=== PATIENT | female | born 1955 | race Caucasian/White ===

== ENCOUNTER 2023-12-07 19:06 | Emergency (ER) | payer MEDICARE, OTHER, SELFPAY ==
[2023-12-07 19:14] VITALS: BP 155/84
--- NOTE | 2023-12-07 19:31 | ED.GENMED ---
History of Present Illness
<Eileen Sims PA-C - Last Filed: 12/07/23 20:52>
General
Chief Complaint: Skin Surface Trauma
Source: patient
Exam Limitations: none
Time Seen by Provider: 12/07/23 19:22
Nursing documentation reviewed up to this point in time: agreed with
History of Present Illness
History of Present Illness:
Patient is a 68-year-old female presenting for evaluation of laceration to left index finger. Patient states that she was cutting an onion about an hour ago when she accidentally sliced her finger. She tried applying pressure and elevating it
without cessation of bleeding so she came to the emergency department for further evaluation. Patient denies any numbness/tingling in left finger. Patient denies any weakness in left finger.
Patient does believe that her tetanus shot was updated within the past 5 years.
Patient is not on a blood thinner.
Past History
<Eileen Sims PA-C - Last Filed: 12/07/23 20:52>
Past History
ED Past Medical History: Other (Reynauds) and Other (seasonal allergies)
Social History
Tobacco: Non-smoker
Living: with family
Review of Systems
<Eileen Sims PA-C - Last Filed: 12/07/23 20:52>
Review of Systems
Allergies reviewed?: Yes
All Other Systems: ROS reviewed and negative except as documented in HPI and ROS
Phy Exam
<Eileen Sims PA-C - Last Filed: 12/07/23 20:52>
Physical Exam
Physical Exam:
Vitals: Patient's vital signs are stable
General: Patient is well appearing, no acute distress
Skin: Avulsion injury of tip of left index finger at lateral aspect
Head: Normocephalic, atraumatic
Eyes: Sclera nonicteric. EOMs intact. No nystagmus.
Throat: Protecting airway
Neck: Normal ROM, no cervical spine tenderness, no meningismus
Cardiac: Regular rate and rhythm, no murmurs.
Pulm: Normal respiratory effort, no wheezes, rales, rhonchi heard on exam.
Abdomen: No abdominal tenderness.
Extremities: Avulsion injury of tuft of left index finger. Actively bleeding. no evidence of tendon involvement. Full strength in left MCP, PIP, and DIP joint against resistance. Good capillary refill. No involvement of nailbed.
Neuro: AAOx3. CN II-XII intact. No focal neurologic deficits.
Psychiatric: Normal affect.
Course
<Eileen Sims PA-C - Last Filed: 12/07/23 20:52>
Vital Signs
Initial and Last Documented VS:
Initial Vital Signs
Temp Pulse Resp BP Pulse Ox
98.1 F 82 20 155/84 100
12/07/23 19:14 12/07/23 19:14 12/07/23 19:14 12/07/23 19:14 12/07/23 19:14
Last Documented Vital Signs
Temp Pulse Resp BP Pulse Ox
98.1 F 82 20 155/84 100
12/07/23 19:14 12/07/23 19:14 12/07/23 19:14 12/07/23 19:14 12/07/23 19:14
<Zachary Guillen MD - Last Filed: 12/07/23 19:53>
Vital Signs
Initial and Last Documented VS:
Initial Vital Signs
Temp Pulse Resp BP Pulse Ox
98.1 F 82 20 155/84 100
12/07/23 19:14 12/07/23 19:14 12/07/23 19:14 12/07/23 19:14 12/07/23 19:14
Last Documented Vital Signs
Temp Pulse Resp BP Pulse Ox
98.1 F 82 20 155/84 100
12/07/23 19:14 12/07/23 19:14 12/07/23 19:14 12/07/23 19:14 12/07/23 19:14
<Eileen Sims PA-C - Last Filed: 12/07/23 20:52>
MDM/Problems Addressed
Differential Diagnosis Includes:
Not limited to: Avulsion injury, laceration
MDM/Problems Addressed:
68-year-old female presenting for evaluation of avulsion injury of left tip of finger. This occurred with a kitchen knife while she was slicing an onion. Patient not on any blood thinners. No other injuries.
Vital signs stable. Physical exam as above. There is an avulsion of the left tip of index finger at lateral aspect with no nailbed involvement. Great capillary refill of left first digit no evidence of tendon involvement. Sensation fully intact.
Will irrigate, apply Gelfoam, compressive dressing and reassess.
Into reassess patient approximately 15 minutes after Gelfoam/dressing was applied. Bleeding is controlled. At this point stable for discharge with wound care instructions, return precautions. Discussed signs of infection at length with patient.
Wound care instructions also discussed with patient at length. Advised to keep current dressing on for 24 to 48 hours.
Patient does believe tetanus is up-to-date within the past 5 years. She will contact her primary care provider on Saturday to ensure this is correct and have it updated if not
Chronic conditions affecting care:
N/A
Acute Exacerbation and/or Progression of Chronic Illness:
N/A
<Eileen Sims PA-C - Last Filed: 12/07/23 20:52>
*Pulse Oximetry
Patient hypoxic: no
*EKG
Interpreted by ED Provider?: NA
*Chronic Disease Epidemiologist Interpretation
Rate: Chronic Disease Epidemiologist- N/A
*Critical Care Note
Total Time (30-74mins, 75-104mins- exclusive of procedures): Not Applicable
ED Attending Note
<Eileen Sims PA-C - Last Filed: 12/07/23 20:52>
-
Portions of this chart may have been created with voice recognition software.� Occasional wrong word or��sound alike� substitutions may have occurred due to the inherent limitations of voice recognition software.
<Zachary Guillen MD - Last Filed: 12/07/23 19:53>
ED Attending Note
Patient seen and examined by attending physician: Yes
I performed the substantive portion of visit, reviewed & personally made and approve the management plan that is documented in note by myself or JAGDEEP.: Yes
ED Attending Note:
Patient cut her left index finger with a sharp knife. Avulsed the tip. Last tetanus less than 10.
Approximately 1 cm x 70 mm avulsion to the tuft of the finger. Actively bleeding.
Plan irrigate clean Gelfoam if this does not work we will try glue.
Discharge Plan
Departure
Patient Disposition: Home (Routine Discharge)
Date of Disposition: 12/07/23
Time of Disposition: 20:34
Patient with high blood pressure during this ER visit?: Yes
Condition: Good
Covid-19: Not Applicable
Discharge Problem:
Fingertip avulsion
Instructions: Wound Care ED
Prescriptions:
No Action
simvastatin 20 MG tablet
20 mg PO HS
fluticasone propionate 1 SPRAY spray,suspension
2 spray intranasal DAILY PRN (Reason: allergies)
calcium carbonate-vitamin D3 1 EACH tablet
1 ea PO Q12H
mupirocin 1 APPLIC ointment
1 applic intranasal BID Qty: 1 0RF
Patient Comments:
mupirocin ointment started on 12/12/18 BID, last dose 12/15/18 @ 4:45
sennosides [senna] 1 TABLET tablet
2 tab PO BID 0RF
acetaminophen 325 MG tablet
650 mg PO QID 0RF
magnesium hydroxide 30 ML suspension
30 ml PO DAILYPRN PRN (Reason: constipation) 0RF
aspirin 325 MG tablet,delayed release (DR/EC)
325 mg PO DAILY 0RF
docusate sodium 100 MG capsule
100 mg PO BID 0RF
oxycodone 5 MG tablet
5 mg PO Q4HPRN PRN (Reason: moderate-severe pain) Qty: 35 0RF
Rx Instructions:
dx garrett
ongoing
ibuprofen 200 MG tablet
400 mg PO BID Qty: 1 0RF
Rx Instructions:
*tAKE WITH FOOD
*DO NOT TAKE WITHIN 2HOURS OF ASA
famotidine 20 MG tablet
20 mg PO HS Qty: 30 0RF
Referrals:
Maria Isabel Torres MD [Family Provider] - Follow up in 1 week
Activity Restrictions/Additional Instructions:
RETURN TO THE EMERGENCY DEPARTMENT WITH ANY RECURRENT BLEEDING THAT WON'T STOP, NUMBNESS/TINGLING IN LEFT FINGER, INTRACTABLE PAIN, OR ANY SIGNS OF INFECTION
-As discussed, you should monitor for signs of infection including severe pain, worsening swelling or redness, red streaking away from wound, pus draining from wound, fever or chills. Please visit your primary care provider if you develop any signs
of infection
-You should keep the current dressing on for 24 to 48 hours. Then you can remove, wash gently with soap and water. You should keep wound covered with antibiotic ointment until it heals. The Gelfoam will dissolve on its own. Keep healing wound
clean and dry. You can take Tylenol as needed for any discomfort.
-As discussed that she should contact her primary care provider on Saturday to ensure that your tetanus shot is up-to-date.
-Monitor your symptoms closely and please return with any acute worsening/any other concerns
Interventions
Interventions:
*Risk Screen - Suicide Last Done: 12/07/23 19:14
*General Assessment Last Done: 12/07/23 19:14
*Neglect/Abuse Screening Last Done: 12/07/23 19:14
ED- Fall Risk Assessment Last Done: 12/07/23 19:14
*ED COVID-19 Vaccine History Last Done: 12/07/23 19:14
*Nursing Disposition Last Done: 12/07/23 20:47
ED-Skin Assessment Last Done: 12/07/23 20:17
Discharge Date and Time
Print Language: BENGALI
== END 2023-12-07 20:47 | disposition home or self-care (01) ==
LOC: EMR 19:06
PROVIDERS: EMERGENCY PHYSICIAN Emergency Medicine; FAMILY PHYSICIAN Family Medicine
DX: S61.211A Laceration without foreign body of left index finger without damage to nail, initial encounter (principal); W26.0XXA Contact with knife, initial encounter; Y93.G1 Activity, food preparation and clean up; R03.0 Elevated blood-pressure reading, without diagnosis of hypertension; E78.5 Hyperlipidemia, unspecified; M19.90 Unspecified osteoarthritis, unspecified site; Z96.641 Presence of right artificial hip joint; Z79.82 Long term (current) use of aspirin; Z91.048 Other nonmedicinal substance allergy status
CPT/HCPCS: 99282

== ENCOUNTER → 2024-02-11 15:33 | Outpatient (REF) | payer MEDICARE, OTHER, SELFPAY | LOC: RAD 15:33 | PROVIDERS: ATTENDING PHYSICIAN Family Medicine | DX: R05.3 Chronic cough (principal) | CPT/HCPCS: 71046 ==

== ENCOUNTER → 2024-04-24 15:07 | Outpatient (REF) | payer MEDICARE, OTHER, SELFPAY | LOC: WDC 15:07 | PROVIDERS: ATTENDING PHYSICIAN Family Medicine | DX: M85.89 Other specified disorders of bone density and structure, multiple sites (principal); Z12.31 Encounter for screening mammogram for malignant neoplasm of breast | CPT/HCPCS: 77063; 77067; 77080 ==

== ENCOUNTER → 2024-09-23 14:08 | Outpatient (REF) | payer MEDICARE, OTHER, SELFPAY | LOC: RAD 14:08 | PROVIDERS: ATTENDING PHYSICIAN Family Medicine; FAMILY PHYSICIAN Family Medicine | DX: T14.90XA Injury, unspecified, initial encounter (principal); M79.672 Pain in left foot | CPT/HCPCS: 73630 ==

== ENCOUNTER → 2025-01-14 08:17 | Outpatient (REF) | payer MEDICARE, OTHER, SELFPAY | LOC: RCS 08:17 | PROVIDERS: ATTENDING PHYSICIAN Family Medicine | DX: R00.1 Bradycardia, unspecified (principal) | CPT/HCPCS: 93225; 93226 ==

== ENCOUNTER 2025-01-15 09:50 | Emergency (ER) | payer MEDICARE, OTHER, SELFPAY ==
[2025-01-15 09:56] VITALS: BP 169/87
[2025-01-15 10:42] VITALS: BP 167/83
[2025-01-15 10:43] VITALS: BMI 22.8
[2025-01-15 11:00] VITALS: BP 155/79
--- NOTE | 2025-01-15 11:06 | ED.GENMED ---
History of Present Illness
General
Chief Complaint: Breathing Problem
Source: patient
Exam Limitations: none
Time Seen by Provider: 01/15/25 10:21
History of Present Illness
History of Present Illness:
69-year-old female presents complaining of palpitations and shortness of breath with associated lightheadedness. There is no significant chest pain. No swelling in the legs or calf pain. No fever. She states she was checking her pulse ox at home
which was reading low and her heart rate was jumping up to 130 beats a minute at times. She has in the interim seen by her family doctor. Family doctor currently has her on her Holter monitor. She has a history of hyperlipidemia but no other
medical problems. No other complaints at this time
Past History
Past History
ED Past Medical History: Other (Reynauds) and Other (seasonal allergies)
Social History
Tobacco: Non-smoker
Living: with family
Phy Exam
Physical Exam
Physical Exam:
General: Well-appearing female no acute respiratory distress
HEENT: Normocephalic atraumatic
Heart: Regular rate and rhythm
Lungs: Clear no wheeze
Extremities: No cyanosis or edema
Skin: Warm no rash
Scores
Heart Failure Risk
Heart Failure Risk Score: Not Applicable
Course
Orders/Labs/Results
Orders:
Orders
01/15/25 09:50
EKG [Electrocardiogram (*1)] Urgent
Reason for Study: Shortness of Breath
EKG- Treatment ONCE
01/15/25 10:50
CT Chest PE Study Urgent
Comment:
Reason For Exam: sob
01/15/25 10:54
Basic Metabolic Panel Urgent
Complete Blood Count/With Diff Urgent
NT-proBNP Urgent
TSH Reflex To Free T4 Urgent
Abnormal Lab Results
01/15/25
10:54
MCH 31.5 H pg
(27.0-31.0)
01/15/25 10:54
01/15/25 10:54
Vital Signs
Initial and Last Documented VS:
Initial Vital Signs
Temp Pulse Resp BP Pulse Ox
98.1 F 56 16 169/87 100
01/15/25 09:56 01/15/25 09:56 01/15/25 09:56 01/15/25 09:56 01/15/25 09:56
Last Documented Vital Signs
Temp Pulse Resp BP Pulse Ox
98.1 F 54 12 141/77 99
01/15/25 09:56 01/15/25 13:08 01/15/25 13:08 01/15/25 12:00 01/15/25 12:30
MDM/Problems Addressed
Differential Diagnosis Includes:
Palpitations lightheadedness shortness of breath. Consider arrhythmia versus anemia versus electrolyte abnormality versus PE
Patient did have a semirecent flight to [place]. Consider PE PE study pending. Will place on monitor.
*Pulse Oximetry
SaO2: 96
Oxygen Mode of Delivery: Room air
Patient hypoxic: no
*Critical Care Note
Total Time (30-74mins, 75-104mins- exclusive of procedures): Not Applicable
Update Note
Update Note:
Worker. With normal troponin, BNP and PE study. No arrhythmias on the monitor. She is not hypoxic here. Thyroid study normal. Patient describes chest comfort and shortness of breath but workup. Negative. Will discharge patient with follow-up
with cardio
ED Attending Note
-
Portions of this chart may have been created with voice recognition software.� Occasional wrong word or��sound alike� substitutions may have occurred due to the inherent limitations of voice recognition software.
Discharge Plan
Departure
Patient Disposition: Home (Routine Discharge)
Date of Disposition: 01/15/25
Time of Disposition: 14:27
Patient with high blood pressure during this ER visit?: No
Discharge Problem:
Shortness of breath
Instructions: Chest Pain CBC Follow Up
Prescriptions:
No Action
simvastatin 20 MG tablet
20 mg PO HS
fluticasone propionate 1 SPRAY spray,suspension
2 spray intranasal DAILY PRN (Reason: allergies)
calcium carbonate-vitamin D3 1 EACH tablet
1 ea PO Q12H
mupirocin 1 APPLIC ointment
1 applic intranasal BID Qty: 1 0RF
Patient Comments:
mupirocin ointment started on 12/12/18 BID, last dose 12/15/18 @ 4:45
sennosides [senna] 1 TABLET tablet
2 tab PO BID 0RF
acetaminophen 325 MG tablet
650 mg PO QID 0RF
magnesium hydroxide 30 ML suspension
30 ml PO DAILYPRN PRN (Reason: constipation) 0RF
aspirin 325 MG tablet,delayed release (DR/EC)
325 mg PO DAILY 0RF
docusate sodium 100 MG capsule
100 mg PO BID 0RF
oxycodone 5 MG tablet
5 mg PO Q4HPRN PRN (Reason: moderate-severe pain) Qty: 35 0RF
Rx Instructions:
dx garrett
ongoing
ibuprofen 200 MG tablet
400 mg PO BID Qty: 1 0RF
Rx Instructions:
*tAKE WITH FOOD
*DO NOT TAKE WITHIN 2HOURS OF ASA
famotidine 20 MG tablet
20 mg PO HS Qty: 30 0RF
Referrals:
Maria Isabel Torres MD [Family Provider, Family Practice]
Activity Restrictions/Additional Instructions:
Please return here for worsening symptoms. Follow-up with cardiology otherwise
Interventions
Interventions:
*Risk Screen - Suicide Last Done: 01/15/25 09:56
*Neglect/Abuse Screening Last Done: 01/15/25 09:56
ED- Cardiac Assessment Last Done: 01/15/25 11:29
ED- Pulmonary Assessment Last Done: 01/15/25 11:29
Discharge Date and Time
Print Language: [id number]
[2025-01-15 11:10] LABS: Hematocrit 40.4 % (37.0-47.0); Hemoglobin 14.1 g/dL (12.0-16.0); Mean Corp Hgb Conc. 34.9 g/dL (33.0-37.0); Mean Corpuscular Volume 90.4 fL (81.0-99.0); Nucleated Red Blood Cells % 0 %; Platelet Count 221 10^3/uL (130-400); Red Cell Dist. Width 12.1 % (11.5-14.5)
[2025-01-15 12:00] VITALS: BP 141/77
[2025-01-15 12:06] LABS: Blood Urea Nitrogen 15 mg/dl (7-17); Calcium 9.6 mg/dl (8.4-10.2); Chloride 105 mmol/L (98-107); Estimated Creatinine Clearance 63 ml/min; Glucose 99 mg/dl (70-99); Sodium 137 mmol/L (135-145); eGFR > 60.00
[2025-01-15 12:10] LABS: Carbon Dioxide 26 mmol/L (22-30)
[2025-01-15 13:23] VITALS: BP 133/85
[2025-01-15 14:00] VITALS: BP 138/81
== END 2025-01-15 15:34 | disposition home or self-care (01) ==
LOC: EMR 09:50
PROVIDERS: Physician Assistant; EMERGENCY PHYSICIAN Emergency Medicine; FAMILY PHYSICIAN Family Medicine
DX: R06.02 Shortness of breath (principal); R42 Dizziness and giddiness; E78.5 Hyperlipidemia, unspecified
CPT/HCPCS: 99284; 71275; 80048; 83880; 84443; 85025; 93005; Q9967

== ENCOUNTER → 2025-01-27 08:07 | Outpatient (REF) | payer MEDICARE, OTHER, SELFPAY | LOC: HWRCS 08:07 | PROVIDERS: ATTENDING PHYSICIAN Internal Medicine Cardiovascular Disease; FAMILY PHYSICIAN Family Medicine | DX: R07.2 Precordial pain (principal); Q26.3 Partial anomalous pulmonary venous connection | CPT/HCPCS: 93306 ==

== ENCOUNTER → 2025-01-29 08:01 | Outpatient (REF) | payer MEDICARE, OTHER, SELFPAY | LOC: RCS 08:01 | PROVIDERS: ATTENDING PHYSICIAN Internal Medicine Cardiovascular Disease; FAMILY PHYSICIAN Family Medicine | DX: R07.2 Precordial pain (principal); R06.02 Shortness of breath | CPT/HCPCS: 93017; 93350 ==

== ENCOUNTER → 2025-04-26 15:44 | Outpatient (REF) | payer MEDICARE, OTHER, SELFPAY | LOC: WDC 15:44 | PROVIDERS: ATTENDING PHYSICIAN Family Medicine | DX: Z12.31 Encounter for screening mammogram for malignant neoplasm of breast (principal) | CPT/HCPCS: 77063; 77067 ==

== ENCOUNTER → 2025-06-14 14:59 | Outpatient (REF) | payer MEDICARE, OTHER, SELFPAY | LOC: RAD 14:59 | PROVIDERS: ATTENDING PHYSICIAN Family Medicine; FAMILY PHYSICIAN Family Medicine | DX: J40 Bronchitis, not specified as acute or chronic (principal) | CPT/HCPCS: 71046 ==